=== PATIENT | male | born 1990 | race Caucasian/White ===

== ENCOUNTER → 2018-03-14 | Outpatient (CLI) | payer OTHER ==
[~2018-03-14] MED LIST: BENADRYL25 MG PO; BETHANECHOL CHLO5 MG PO; CLARITIN-D 11 TABLE1 PO; CLARITIN10 M3 PO; CLEOCIN PE75 MG/5 ML PO; CLEOCIN300 MG PO; COLACE100 MG PO; CONSTULOSE10 GM/15 M PO; DAILY VITE1 EAC1 PO; DEPAKOTE250 MG PO; DEPAKOTE500 MG PO; DULCOLAX10 MG PR; FLONASE16 G1 BOTH NARES; GUANFACINE HCL1 MG PO; HALDOL5 MG PO; INDERAL LA120 MG PO; INDERAL10 MG PO; INDERAL60 MG PO; INDERAL80 MG PO; KLONOPIN0.5 M1 PO; LITHIUM CARBON150 MG PO; MELATIN3 MG PO; MIRALAX17 GM PO; MOTRIN800 MG PO; MUCINEX600 MG PO; PERIDEX1 ML MM; RISPERDAL3 MG PO; RISPERDAL4 MG PO; SYNTHROID100 MCG PO; TAMIFLU75 MG PO; TENEX1 M1 PO; TYLENOL325 M1 PO; URECHOLINE25 MG PO; VALIUM10 MG PO; VITAMIN D250000 UNIT PO; VITAMIN D31000 UNIT PO
== END | disposition home or self-care (01) ==
LOC: RAD 10:20
DX: S01.01XA Laceration without foreign body of scalp, initial encounter (principal); Z91.81 History of falling
CPT/HCPCS: 70450